=== PATIENT | female | born 1975 | race African-American/Black ===

== ENCOUNTER 2020-08-05 05:05 | Emergency (ER) | payer OTHER, SELFPAY ==
[2020-08-05] VITALS (11 sets, daily range): BP systolic 93–118; BP diastolic 62–86; PULSE 71–100; RESP 13–20; TEMP 36.2; O2SAT 98–100
--- NOTE | ~2020-08-05 | CT_ITS ---
EXAMINATION: CT BRAIN W/O DATE: 08/05/2020 07:00 INDICATION: Dizziness TECHNIQUE: Computed tomography (CT) of the head was performed without intravenous contrast. The dose- length product was 605.33 mGy-cm. The mA was adjusted according to patient size. Iterative reconstruc tion technique was employed. COMPARISON: No prior studies for comparison. FINDINGS: Normal brain parenchymal volume for age. Normal bailey-white differentiation. No acute intrac ranial hemorrhage, infarction, mass or mass effect. There is a foreign body overlying the skull in th e right parietal region. This creates streak artifact limiting evaluation of the overlying parenchyma . No ventriculomegaly or midline shift. Midline sagittal images demonstrate a normal corpus callosum, c raniovertebral junction and sella turcica. Basilar cisterns are patent. Paranasal sinuses and mastoids are pneumatized. No depressed skull fractures. IMPRESSION: 1. No acute intracranial abnormality. Reviewed, dictated and finalized at location A. INE I TRIMMER
--- NOTE | ~2020-08-05 | XR_ITS ---
XR chest 1V portable 08/05/2020 06:29 Indication: Cough Procedure: AP portable chest Comparison: 10/04/2019 Findings: Heart size normal. No focal air space disease, pulmonary edema, pleural effusion or suspect ed pneumothorax. Impression: 1: No acute cardiopulmonary disease. Reviewed, dictated and finalized at location A. CTOR OF MUSIC THERAPY Impression: 1: No acute cardiopulmonary disease.
[2020-08-05] MEDS: ONDANSETRON INJ 4 MG/2 ML VIAL (05:31)
--- NOTE | 2020-08-05 05:41 | ECG_ITS ---
Measurements Intervals [place] Rate: 80 P: 45 CO: 155 QRS: 53 QRSD: 89 T: 27 QT: 371 QTc: 429 Interpretive Statements SINUS RHYTHM NONSPECIFIC T-WAVE ABNORMALITY- INFERIOR LEADS BORDERLINE ECG Electronically Signed On 08-05-2020 7:27:28 AREA MECHANIC by Ernesto Diaz D.O.
--- NOTE | 2020-08-05 05:41 | ED.GENADULT ---
HPI - General Adult General Chief complaint: Shortness of Breath/Dyspnea <DO Diane Bangura Last Filed: 08/05/20 06:00> Stated complaint: diff breathing, dizziness <DO Diane Bangura Last Filed: 08/05/20 06:00> Time Seen by Provider: 08/05/20 05:11 <Javed Pierce DO - Last Filed: 08/05/20 06:00> Source: RN notes reviewed <DO Diane Bangura Last Filed: 08/05/20 06:00> History of Present Illness HPI narrative: Patient presents emergency department from home for dizziness. Patient states that she awoke from sleep feeling dizzy. States that time she felt like the room was spinning states she was nauseated with the symptoms. She states that she then noted that when she was getting up she was feeling short of breath with getting up and ambulating at this time in bed she states she does have dizziness but is improved and worsened with standing up and with rotation of the head bilaterally she denies any fevers or chills vision changes numbness or tingling in the extremities chest pain or any other symptoms patient does state she continues to have nausea <DO Diane Bangura Last Filed: 08/05/20 06:00> Related Data Home medications: Home Medications Medication Instructions Recorded Confirmed ergocalciferol (vitamin D2) 10/04/19 [Vitamin D2] ferrous sulfate 325 mg PO DAILY 10/04/19 <Javed Pierce DO - Last Filed: 08/05/20 06:00> Allergies/adverse reactions: Allergies Allergy/AdvReac Type Severity Reaction Status Date / Time milk Allergy Unknown RASH WHEN Verified 08/05/20 05:06 SHE DRINKS A LOT OF MILD SEAFOOD Allergy Unknown RASH Uncoded 10/04/19 07:59 <Javed Pierce DO - Last Filed: 08/05/20 06:00> Review of Systems Review of Systems: Narrative: Gen.: Denies fevers or chills Eyes: Denies eye pain or visual change ENT: Denies congestion Respiratory: Reports shortness of breath with exertion CV: Denies chest pain or palpitations GI: Denies abdominal pain reports nausea vomiting denies burning, urgency, frequency or hematuria Musculoskeletal: Denies back pain or muscle pain Neuro: See HPI Skin: Denies rash Except as documented, all other systems reviewed and negative <Javed Pierce DO - Last Filed: 08/05/20 06:00> [facility] Past Medical History Medical History: Medical History GERD (gastroesophageal reflux disease) <Javed Pierce DO - Last Filed: 08/05/20 06:00> Surgical History Surgical History: Surgical History (Updated 10/04/19 @ 08:14 by Ean Lockett) Hx of section Hx of tubal ligation <Javed Pierce DO - Last Filed: 08/05/20 06:00> Social History Social History: Social History Smoking status: Never smoker <Javed Pierce DO - Last Filed: 08/05/20 06:00> Exam Narrative: Exam Narrative: APPEARANCE: No acute distress, nontoxic, resting in bed HEENT: Normocephalic, atraumatic, OMM, EYES: PERRL, EOMI NECK: Supple, nontender, full range of motion without pain, no meningismus RESPIRATORY: No respiratory distress, clear to auscultation bilaterally with no rhonchi wheezing or rales CARDIOVASCULAR: RRR s murmur ABDOMINAL: Soft, nontender, nondistended MUSCULOSKELETAL: Moves all extremities. No clubbing, cyanosis or edema. NEURO: A and O ?3, following commands, speech normal, no facial droop,muscle strength 5 out of 5 bilateral upper and lower extremities dizziness increases with turning the head bilaterally SKIN:: Warm, dry. Normal Color PSYCHIATRIC: Normal affect/mood <Javed Pierce DO - Last Filed: 08/05/20 06:00> Course Vital Signs Vital signs: Vital Signs Pulse Oximetry 99 08/05/20 05:19 Temperature 36.2 C L 08/05/20 05:27 Pulse Rate 71 08/05/20 08:31 Respiratory Rate 18 08/05/20 08:31 Blood Pressure 93/62 L
[2020-08-05 05:42] LABS: Basophils Percent Auto 0.4 % (0.2-1.2); Eosinophils Absolute Auto 0.2 K/mm3 (0-0.3); Eosinophils Percent Auto 2.6 % (0-4.4); Hematocrit 36.2 % (37.0-47.0); Hemoglobin 11.2 g/dL (12.0-15.0); Immature Granulocyte Absolute 0.02 K/mm3 (0.00-0.031); Immature Granulocyte Percent A 0.2 % (0-0.5); Lymphocytes Absolute Auto 4.64 K/mm3 (0.9-3.2); Lymphocytes Percent Auto 54.8 % (18.3-44.2); Mean Corpuscular HGB Conc 30.9 g/dl (32-36); Mean Corpuscular Volume 80.8 fl (80-100); Mean Platelet Volume 10.2 fl (7.4-10.4); Monocytes Absolute Auto 0.5 K/mm3 (0.1-0.6); Monocytes Percent Auto 6.4 % (2.6-8.5); Neutrophils Percent Auto 35.6 % (45.5-73.1); Platelet Count Result 317 k/mm3 (150-375); Red Blood Count 4.48 M/mm3 (4.2-5.4); Red Cell Distribution Width 15.6 % (11.5-14.5); White Blood Count 8.5 K/mm3 (4.5-10.0)
[2020-08-05] MEDS: SODIUM CHLORIDE 0.9% IV 1,000 ML 999 ML IV CONT (05:48)
[2020-08-05] MEDS: MECLIZINE HCL 25 MG TABLET PO (05:48)
[2020-08-05 05:58] LABS: Alanine Aminotransferase 12 U/L (4-35); Albumin Level 3.9 g/dL (3.5-5.1); Alkaline Phosphatase 83 U/L (38-126); Anion Gap 10 mmol/L (8-16); Aspartate Amino Transferase 19 U/L (14-36); Bilirubin,Total 0.2 mg/dL (0.2-1.3); Blood Urea Nitrogen 12 mg/dL (7-17); Calcium 8.7 mg/dL (8.4-10.2); Carbon Dioxide 23 mmol/L (22-30); Chloride 107 mmol/L (98-107); Estimated CRCL calculation 82 ml/min; Estimated Glomerular Filt Rate > 60; Glucose 149 mg/dL (65-105); Lipase 156 U/L (23-300); Potassium 3.8 mmol/L (3.4-5.0); Sodium 140 mmol/L (137-145)
[2020-08-05 06:37] LABS: Troponin I < 0.012 ng/mL (0.000-0.034)
--- NOTE | 2020-08-05 07:26 | PC.NURSE ---
Into pts room to introduce this RN. Informed pt that we were needing urine. PT states she will try and use the bedside commode when her gets back in room.
--- NOTE | 2020-08-05 07:34 | PC.NURSE ---
went back into pts room to see about urine. Pts told me to let her sleep . Informed both pt and pts that we are needing urine. Pt had me put down side rail and states she will try.
[2020-08-05 08:04] LABS: Add Urine Microscopic? YES; Appearance Urine Clear (Clear); Bacteria Urine Trace /hpf; Bilirubin Urine Negative (Negative); Blood Urine 2+ (Negative); Color Urine Yellow (Yellow); Glucose Urine UA Negative (Negative); Ketones Urine Negative (Negative); Leukocyte Esterase Ur Negative LEU/UL (Negative); Mucus Urine Rare /lpf; Nitrate Urine Negative (Negative); Protein Urine Negative (Negative); RBC Urine 0-2 /hpf (0-2); Specific Grav Ur 1.016 (1.001-1.035); Squamous Epithelial Cell Urine Many /hpf (Few); Urobilinogen Urine Negative mg/dL (<2.0)
== END 2020-08-05 09:29 | disposition home or self-care (01) ==
PROVIDERS: Emergency Medicine; Emergency Provider Emergency Medicine; PCP Nurse Practitioner Family
DX: R42 Dizziness and giddiness (principal); K21.9 Gastro-esophageal reflux disease without esophagitis; R94.31 Abnormal electrocardiogram [ECG] [EKG]
CPT/HCPCS: 36415; 70450; 71045; 80053; 81001; 81025; 83690; 84484; 85025; 93005; 96361; 96374; 96375; 99284; A9270; J2405; J7030

== ENCOUNTER 2020-10-21 08:28 | Outpatient (CLI) | payer OTHER, SELFPAY | END 2020-10-21 08:29 | disposition home or self-care (01) | LOC: ANHAUDIO 08:35 | PROVIDERS: PCP Nurse Practitioner Family | DX: R42 Dizziness and giddiness (principal) | CPT/HCPCS: 92537; 92540; 92546; 92557; 92567 ==

== ENCOUNTER 2020-11-13 16:21 | Emergency (ER) | payer OTHER, SELFPAY ==
--- NOTE | ~2020-11-13 | XR_ITS ---
EXAMINATION:XR_CERV2-3V_CR DATE: 11/13/2020 20:18 INDICATION: Neck pain TECHNIQUE: AP, lateral, and odontoid views of the cervical spine are provided. COMPARISON: None FINDINGS: Alignment is normal. The odontoid is intact. No fracture is identified. Vertebral body heig hts and disk spaces are normal. Small degenerative osteophytes project from the anterior endplates of multiple vertebral bodies. Prevertebral soft tissues are normal. Incidental note is made of a metall ic density projecting over the skull. This was seen on prior CT. IMPRESSION: 1. Mild cervical spondylosis without acute findings. Reviewed, dictated and finalized at location A. E CIRCULAR SAWYER
--- NOTE | ~2020-11-13 | XR_ITS ---
EXAMINATION: XR chest 2V DATE: 11/13/2020 17:02 INDICATION: Left-sided chest and arm pain radiating to the left back TECHNIQUE: PA and lateral views of the chest were obtained. COMPARISON: Chest radiograph dated 08/05/2020 FINDINGS: The lungs remain clear with no focal airspace opacities, pulmonary edema, pleural effusion or pneumot horax. The cardiomediastinal silhouette is normal. Mild thoracic dextrocurvature. IMPRESSION: 1. No acute cardiopulmonary disease. Reviewed, dictated and finalized at location B. T QUALITY MANAGER
--- NOTE | 2020-11-13 16:27 | ECG_ITS ---
Measurements Intervals [place] Rate: 84 P: 37 [place]: 147 QRS: 48 QRSD: 90 T: 13 QT: 346 QTc: 410 Interpretive Statements SINUS RHYTHM WITH SINUS ARRHYTHMIA NONSPECIFIC T-WAVE ABNORMALITY- INFERIOR LEADS BORDERLINE ECG Electronically Signed On 11-13-2020 18:22:29 [address] ROLLER ENGINEER by Ernesto Diaz D.O.
[2020-11-13 17:28] VITALS: BP 129/78; PULSE 88; RESP 18; TEMP 36.5; O2SAT 100
[2020-11-13 17:55] LABS: Basophils Percent Auto 0.4 % (0.2-1.2); Eosinophils Absolute Auto 0.2 K/mm3 (0-0.3); Eosinophils Percent Auto 2.6 % (0-4.4); Hematocrit 35.8 % (37.0-47.0); Hemoglobin 11.1 g/dL (12.0-15.0); Immature Granulocyte Absolute 0.01 K/mm3 (0.00-0.031); Immature Granulocyte Percent A 0.1 % (0-0.5); Lymphocytes Absolute Auto 2.95 K/mm3 (0.9-3.2); Lymphocytes Percent Auto 39.9 % (18.3-44.2); Mean Corpuscular Hemoglobin 24.9 pg (26-34); Mean Corpuscular Volume 80.4 fl (80-100); Mean Platelet Volume 10.5 fl (7.4-10.4); Monocytes Absolute Auto 0.6 K/mm3 (0.1-0.6); Monocytes Percent Auto 8.4 % (2.6-8.5); Neutrophils Absolute Auto 3.6 K/mm3 (1.3-6.7); Neutrophils Percent Auto 48.6 % (45.5-73.1); Platelet Count Result 272 k/mm3 (150-375); Red Blood Count 4.45 M/mm3 (4.2-5.4); Red Cell Distribution Width 15.4 % (11.5-14.5); White Blood Count 7.4 K/mm3 (4.5-10.0)
[2020-11-13 18:07] LABS: INR 0.9; Prothrombin Time 12.9 Seconds (11.1-14.7)
[2020-11-13 18:08] LABS: Partial Thromboplastin Time 25.9 SECONDS (22.3-36.8)
[2020-11-13 18:10] LABS: Anion Gap 6 mmol/L (8-16); Blood Urea Nitrogen 13 mg/dL (7-17); Calcium 8.7 mg/dL (8.4-10.2); Carbon Dioxide 26 mmol/L (22-30); Chloride 108 mmol/L (98-107); Estimated CRCL calculation 75 ml/min; Estimated Glomerular Filt Rate > 60; Glucose 99 mg/dL (65-105); Sodium 140 mmol/L (137-145)
[2020-11-13 18:22] LABS: Troponin I < 0.012 ng/mL (0.000-0.034)
[2020-11-13 20:21] VITALS: BP 122/80; PULSE 87; RESP 18; O2SAT 100
--- NOTE | 2020-11-13 21:49 | ED.GENADULT ---
HPI - General Adult General Chief complaint: Chest Pain Stated complaint: left arm pain, cp, back pain Time Seen by Provider: 11/13/20 19:37 History of Present Illness HPI narrative: Patient is a 45-year-old female who presents ER with left arm pain. Ongoing for 2 weeks. There is an aching discomfort to her arm. Associated with some shoulder and neck discomfort as well. She went to chiropractor today without relief of pain. Additionally she has taken Aleve once yesterday and then another time earlier in the week without significant improvement. She has no focal weakness or numbness in her arm. She is unsure of what movements or activities causes her discomfort to worsen. No known trauma. No cardiac history. Related Data Home Medications Medication Instructions Recorded Confirmed ergocalciferol (vitamin D2) 10/04/19 [Vitamin D2] ferrous sulfate 325 mg PO DAILY 10/04/19 Allergies Allergy/AdvReac Type Severity Reaction Status Date / Time milk Allergy Unknown RASH WHEN Verified 08/05/20 05:06 SHE DRINKS A LOT OF MILD SEAFOOD Allergy Unknown RASH Uncoded 10/04/19 07:59 Review of Systems Review of Systems: All systems reviewed & are unremarkable except as noted in HPI and below Constitutional: Constitutional: Denies chills, Denies fever(s) and Denies weakness ENT: Denies nasal congestion and Denies sore throat Cardiovascular: Cardiovascular: Denies chest pain, Denies rapid heart rate and Denies radiating jaw, neck or arm pain Respiratory: Respiratory: Denies cough, Denies dyspnea and Denies wheezing Gastrointestinal: Gastrointestinal: Denies nausea and Denies vomiting Musculoskeletal: Musculoskeletal: Denies arthralgias and Reports muscle cramps Comments: Left arm aching PMFSH Past Medical History Medical History GERD (gastroesophageal reflux disease) Surgical History Surgical History (Updated 10/04/19 @ 08:14 by Ean Lockett) Hx of section Hx of tubal ligation Social History Social History Smoking status: Never smoker Gender identity (if verbalized by the patient): Female Exam Narrative: Exam Narrative: GENERAL: Well-appearing, well-nourished, and in no acute distress. HEAD: Normocephalic, atraumatic. CHEST: Clear to auscultation. No respiratory distress. HEART: Regular rate and rhythm. Normal peripheral pulses. ABDOMEN: Soft, nontender, nondistended, normal active bowel sounds. EXTREMITIES: Focused exam left upper extremity reveals 5 out of 5 strength at the wrist/elbow/shoulder. Normal brachial radialis and biceps reflexes. No sensory deficit. Back: Mild tenderness over left trapezius muscle and the paraspinal cervical musculature. No palpable spasm. SKIN: Warm, dry, no rash. NEURO: Alert and oriented x3. Course Course Emergency Course: Patient now notes that if she turns her head to the right it may increase her discomfort on the left side. Discussed that we will treat her conservatively with anti-inflammatories as this may reflect a radiculopathy. Patient has had no infectious symptoms and has no focal deficit at this time. Discussed taking anti-inflammatories with food and starting reflux medication. Vital Signs Vital signs: Vital Signs Temperature 97.7 F 11/13/20 17:28 Pulse Rate 88 11/13/20 17:28 Respiratory Rate 18 11/13/20 17:28 Blood Pressure 129/78 11/13/20 17:28 Pulse Oximetry 100 11/13/20 17:28 Temperature 97.7 F 11/13/20 17:28 Pulse Rate 87 11/13/20 20:21 Respiratory Rate 18 11/13/20 20:21 Blood Pressure 122/80 11/13/20 20:21 Pulse Oximetry 100 11/13/20 20:21 Medical Decision Making Vital Signs Vital Signs: Vital Signs Temperature 97.7 F 11/13/20 17:28 Pulse Rate 88 11/13/20 17:28 Respiratory Rate 18 11/13/20 17:28 Blood Pressure 129/78 11/13/20 17:28 Pulse Oximetry 10
[2020-11-13 22:12] VITALS: BP 123/76; PULSE 84; RESP 18; O2SAT 99
== END 2020-11-13 22:15 | disposition home or self-care (01) ==
PROVIDERS: Emergency Provider Emergency Medicine; PCP Nurse Practitioner Family
DX: M54.12 Radiculopathy, cervical region (principal); K21.9 Gastro-esophageal reflux disease without esophagitis; M47.812 Spondylosis without myelopathy or radiculopathy, cervical region; R94.31 Abnormal electrocardiogram [ECG] [EKG]
CPT/HCPCS: 36415; 71046; 72040; 80048; 84484; 85025; 85610; 85730; 93005; 99284

== ENCOUNTER 2020-12-13 06:32 | Emergency (ER) | payer OTHER, SELFPAY ==
--- NOTE | ~2020-12-13 | US_ITS ---
EXAMINATION: US venous doppler [facility] DATE: 12/13/2020 08:17 INDICATION: Left lower limb pain TECHNIQUE: Grayscale ultrasound images without and with compression and Doppler ultrasound images of the left lower extremity veins were obtained. COMPARISON: None. FINDINGS: The visualized portions of left common femoral vein, profunda (deep) femoral vein, femoral vein, popl iteal vein, peroneal veins, posterior tibial veins, gastrocnemius vein and greater saphenous vein out flow are patent. IMPRESSION: 1. No deep venous thrombosis in the left lower limb. Reviewed, dictated and finalized at location A.
--- NOTE | ~2020-12-13 | XR_ITS ---
EXAMINATION: XR ankle LT min 3V, XR foot LT min 3V DATE: 12/13/2020 07:10 INDICATION: Distal anterior tibia/fibula and foot pain. TECHNIQUE: 1. Anteroposterior, mortise, additional oblique and lateral view of the left ankle were obtained. 2. Dorsoplantar, two oblique and lateral views of the left foot were obtained. COMPARISON: None. FINDINGS: Alignment of the foot and ankle is normal. No fracture or osteochondral lesion. Joint spaces are well maintained. Small plantar calcaneal spur. No ankle joint effusion. The soft tissues are unremarkable . IMPRESSION: 1. No acute osseous abnormality. Reviewed, dictated and finalized at location A. IMPRESSION: 1. No acute osseous abnormality.
[2020-12-13 06:34] VITALS: BP 105/67; PULSE 99; RESP 14; TEMP 36.8; O2SAT 100
--- NOTE | 2020-12-13 07:17 | PC.NURSE ---
Report received from Ronen RN. Dr. Taylor at bedside for exam.
[2020-12-13] MEDS: ACETAMINOPHEN 500 MG TABLET 1000 MG (07:36)
--- NOTE | 2020-12-13 08:16 | ED.LOWEXIN ---
HPI - Extremity Injury (Lower) General Chief Complaint: Extremity Injury, Lower Stated Complaint: Left leg pain Time Seen by Provider: 12/13/20 07:09 History of Present Illness HPI Narrative: Patient is a 45-year-old female who presents to the ER with aching in her left foot and leg below the knee. Ongoing for 24 h. Patient had been on a construction site walking on gravel but does not recall suffering an injury such as a fall or twisting of the ankle. No items were dropped on it. She has no numbness or tingling. She is concerned she could potentially have a blood clot. She is without chest pain or shortness of breath. She is taking naproxen without relief. She is able to bear weight. No swelling. Related Data Home Medications Medication Instructions Recorded Confirmed ergocalciferol (vitamin D2) 10/04/19 [Vitamin D2] ferrous sulfate 325 mg PO DAILY 10/04/19 Allergies Allergy/AdvReac Type Severity Reaction Status Date / Time Fish Containing Products Allergy Unknown Rash Verified 12/13/20 07:23 milk Allergy Unknown RASH WHEN Verified 12/13/20 06:53 SHE DRINKS A LOT OF MILD shellfish derived Allergy Unknown Rash Verified 12/13/20 07:23 SEAFOOD Allergy Unknown RASH Uncoded 12/13/20 06:53 Review of Systems Cardiovascular: Cardiovascular: Denies chest pain Respiratory: Respiratory: Denies cough and Denies dyspnea Musculoskeletal: Musculoskeletal: Denies back pain, Denies arthralgias, Denies joint swelling and Denies muscle cramps Comments: Generalized aching of the left lower extremity. PMFSH Past Medical History Medical History GERD (gastroesophageal reflux disease) Surgical History Surgical History (Updated 10/04/19 @ 08:14 by Ean Lockett) Hx of section Hx of tubal ligation Social History Social History Smoking status: Never smoker Gender identity (if verbalized by the patient): Female Exam Narrative: Exam Narrative: GENERAL: Well-appearing, well-nourished, and in no acute distress. HEAD: Normocephalic, atraumatic. EXTREMITIES: Focused exam left lower extremity reveals full range of motion at the hip/ankle/knee. 5 out of 5 strength noted. Normal dorsalis pedis and posterior tibial pulses. Sensation intact. Negative Homans' sign. No edema. SKIN: Warm, dry, no rash. NEURO: No focal deficits. Alert and oriented x3. PSYCH: Normal mood and affect. Course Vital Signs Vital signs: Vital Signs Temperature 98.2 F 12/13/20 06:34 Pulse Rate 99 12/13/20 06:34 Respiratory Rate 14 12/13/20 06:34 Blood Pressure 105/67 12/13/20 06:34 Pulse Oximetry 100 12/13/20 06:34 Temperature 98.2 F 12/13/20 06:34 Pulse Rate 99 12/13/20 06:34 Respiratory Rate 14 12/13/20 06:34 Blood Pressure 105/67 12/13/20 06:34 Pulse Oximetry 100 12/13/20 06:34 MDM - Extremity Injury (Lower) Imaging Data Radiologist's impression: ITS Impressions Ankle X-Ray 12/13/20 07:16 IMPRESSION: 1. No acute osseous abnormality. Foot X-Ray 12/13/20 07:16 IMPRESSION: 1. No acute osseous abnormality. Venous Doppler Study 12/13/20 08:18 IMPRESSION: 1. No deep venous thrombosis in the left lower limb. Discharge Plan Discharge Clinical Impression: Muscle ache Patient Disposition: Home, Self-Care Condition: Stable Instructions: Musculoskeletal Pain (ED) Additional Instructions: Continue take naproxen and Tylenol as needed for pain at home. Return the ER if you have redness or swelling of your leg, you have fever over 100.4 ?F, you cannot keep down food or water, or you have additional concerns. Prescriptions: No Action naproxen 500 mg tablet 500 mg PO BID Qty: 20 RF: 0 omeprazole 20 mg capsule,delayed release(DR/EC) 20 mg PO BID Qty: 30 RF: 0 ferrous sulfate 325 mg (65 mg iron) Tablet
== END 2020-12-13 08:55 | disposition home or self-care (01) ==
PROVIDERS: Emergency Provider Emergency Medicine; PCP Nurse Practitioner Family
DX: M79.662 Pain in left lower leg (principal); K21.9 Gastro-esophageal reflux disease without esophagitis
CPT/HCPCS: 73610; 73630; 93971; 99284; A9270

== ENCOUNTER 2021-01-07 10:20 | Emergency (ER) | payer OTHER, SELFPAY ==
[2021-01-07 10:44] VITALS: BP 98/69; PULSE 89; RESP 16; TEMP 36.6; O2SAT 100
[2021-01-07 10:47] VITALS: BP 98/69; PULSE 89; RESP 16; TEMP 36.6; O2SAT 100
--- NOTE | 2021-01-07 11:23 | ED.SKABFB ---
HPI - Skin/Abscess/Foreign Bdy General Chief complaint: Skin/Abscess/Foreign Body Stated complaint: Boil under arm Time Seen by Provider: 01/07/21 11:00 Source: patient and RN notes reviewed Mode of arrival: ambulatory Limitations: no limitations History of Present Illness HPI narrative: 45-year-old female who presents to [facility] with complaints of abscess under her left armpit for the past 3-4 days. Patient states that she has history of boils in the past. Patient states that she has been applying warm compresses and also applying ointment to area, states pain is aching and throbbing rates it 8/10. Patient has 1.5X1.5 raised indurated red area noted under left axilla which is red and warm to touch. MD complaint: abscess/boil Onset (ago): day(s) (3-4) Location: LUE (left axilla) Severity: severe Severity scale (1-10): 8 Quality: aching and other (throbbing) Pain Consistency: constant Relieving factors: none Exacerbating factors: palpation Treatments prior to arrival: OTC topical medication and other (warm compresses) Related Data Home Medications Medication Instructions Recorded Confirmed fluticasone propionate INTRANASAL 01/07/21 medroxyprogesterone mg IM 01/07/21 omeprazole 01/07/21 Allergies Allergy/AdvReac Type Severity Reaction Status Date / Time No Known Allergies Allergy Verified 01/07/21 10:28 Review of Systems Review of Systems: Narrative: CONSTITUTIONAL: Denies fever, chills, or sweats. EYES: Denies visual changes, redness, or discharge. ENT: Denies rhinorrhea, congestion, sore throat, or otalgia. CARDIOVASCULAR: Denies chest pain, palpitations, or edema. RESPIRATORY: Denies cough or dyspnea. GASTROINTESTINAL: Denies abdominal pain, nausea, vomiting, or diarrhea. GENITOURINARY: Denies dysuria or hematuria. SKIN: Positive for raised indurated red tissue in left axilla MUSCULOSKELETAL: Denies back pain, joint pain, or myalgia. NEUROLOGIC: Denies headache, numbness, or weakness. PSYCHIATRIC: Denies anxiety or depression. All systems reviewed & are unremarkable except as noted in HPI and below PMFSH Past Medical History Medical History (Updated 01/09/21 @ 21:50 by Kelsey Moreno NP) Dizziness GERD (gastroesophageal reflux disease) History of abscess of skin and subcutaneous tissue Surgical History Surgical History (Updated 01/09/21 @ 21:49 by Kelsey Moreno NP) No history of previous surgery Family History Family History (Updated 01/09/21 @ 21:49 by Kelsey Moreno NP) Other No significant family history Social History Social History (Updated 01/09/21 @ 21:47 by Kelsey Moreno NP) Smoking status: Never smoker Alcohol intake: current Alcohol use details: social Substance use: never Living arrangements: with family Gender identity (if verbalized by the patient): Female Comments At time of signature, agree with nursing past medical, surgical, social and family history. There is no relevant family history pertinent to the presenting complaint Exam Narrative: Exam Narrative: GENERAL: Well-appearing, well-nourished, and in no acute distress. HEAD: Normocephalic, atraumatic. EYES: PERRLA and EOMI. ENT: Nares clear, no rhinorrhea or epistaxis. Mucous membranes moist.TM normal with good light reflex, throat pink with no lesions or exudates, no tonsil swelling NECK: Supple.no lymphadenopathy CHEST: Clear to auscultation. No respiratory distress. HEART: Regular rate and rhythm. No murmur heard. Normal peripheral pulses. ABDOMEN: Soft, nontender, nondistended, normal active bowel sounds. EXTREMITIES: Normal range of motion. No edema. SKIN: Warm, dry, 1.5cm X1,5cm raised red indurated area to left axilla, painful to palpation, warmth to skin noted,no drainage noted NEURO: No focal deficits. Alert and oriented x3. Course Vital Signs Vital signs: Vital Signs Temperature 36.6 C 01/07/21 10:44 Pulse Rate 89 01/07/21 10:44 Respiratory Rate 16 /
== END 2021-01-07 11:55 | disposition home or self-care (01) ==
PROVIDERS: Emergency Provider Registered Nurse; PCP Nurse Practitioner Family
DX: L02.412 Cutaneous abscess of left axilla (principal); K21.9 Gastro-esophageal reflux disease without esophagitis
CPT/HCPCS: 10060; 87070; 87075; 87077; 87186; 87205; 99213; G0463

== ENCOUNTER 2021-11-21 15:28 | Emergency (ER) | payer OTHER, SELFPAY ==
[2021-11-21 15:37] VITALS: BP 105/72; PULSE 92; RESP 16; TEMP 36.8; O2SAT 99
--- NOTE | 2021-11-21 15:44 | ED.SKABFB ---
HPI - Skin/Abscess/Foreign Bdy General Chief complaint: Skin/Abscess/Foreign Body Stated complaint: Irritated Breast Time Seen by Provider: 11/21/21 15:44 Source: patient Mode of arrival: ambulatory Limitations: no limitations History of Present Illness HPI narrative: Cheryl Ornelas is a 46 yo female with a PMH breast abscess, who came to [facility] with a small 1.5 cm abscess under left . She has tried heat and she has a history of these developing into much larger abscesses in both left and right arm axilla. And on Bactrim for abscess last time so is going to put on Keflex Related Data Home Medications Medication Instructions Recorded Confirmed medroxyprogesterone mg IM 01/07/21 omeprazole 01/07/21 Allergies Allergy/AdvReac Type Severity Reaction Status Date / Time No Known Allergies Allergy Verified 01/07/21 10:28 Review of Systems Review of Systems: CONSTITUTIONAL: Denies fever, chills, sweats. EYES: Denies visual changes, redness, discharge. ENT: Denies rhinorrhea, congestion, sore throat, otalgia. CARDIOVASCULAR: Denies chest pain, palpitations, edema. RESPIRATORY: Denies dyspnea, wheezing, cough GASTROINTESTINAL: Denies abdominal pain, nausea, vomiting, diarrhea. GENITOURINARY: Denies dysuria, hematuria, abnormal discharge SKIN: Denies rash or itching. Patient has 1.5 cm abscess in her left axilla NEUROLOGIC: Denies numbness, or focal weakness. PSYCHIATRIC: Denies anxiety or depression. PMFSH Past Medical History Medical History Dizziness GERD (gastroesophageal reflux disease) History of abscess of skin and subcutaneous tissue Surgical History Surgical History No history of previous surgery Family History Family History Other No significant family history Social History Social History Smoking status: Never smoker Alcohol intake: current Alcohol use details: social Substance use: never Gender identity (if verbalized by the patient): Female Comments At time of signature, I agree with nursing past medical, surgical, social and family history. There is no relevant family history pertinent to the presenting complaint. Exam Narrative: GENERAL: This is a well-nourished, well-developed patient, in mild distress. HEAD: normocephalic, atraumatic. EYES: Sclera clear/white. Vision is grossly intact. EARS: External ears normal. Hearing grossly intact. NOSE: External nose normal without nasal discharge, nares without redness, no rhinorrhea. THROAT: Mucous membranes moist, NECK: Neck supple, CARDIOVASCULAR: Regular rate and rhythm without murmurs, gallops, or rubs. RESPIRATORY: Clear to auscultation. Breath sounds equal bilaterally. No wheezes, rales, or rhonchi. GASTROINTESTINAL: Abdomen soft, SKIN: warm, intact with 1.5 cm abscess with good NEURO: awake, alert, and oriented to person, place and time. There were no obvious focal neurologic abnormalities. Steady gait EXTREMITIES: Normal range of motion. BACK: Nontender without deformity Course Course Emergency Course: Patient comes with a 1.5 cm abscess under left arm patient appears to have hydroadenitis and needs to be evaluated surgeon discussed this with patient I&D of the abscess Started on Keflex Level of Care: Express Care Visit Vital Signs Vital signs: Vital Signs Temperature 98.3 F 11/21/21 15:37 Pulse Rate 92 11/21/21 15:37 Respiratory Rate 16 11/21/21 15:37 Blood Pressure 105/72 11/21/21 15:37 Pulse Oximetry 99 11/21/21 15:37 Temperature 98.3 F 11/21/21 15:37 Pulse Rate 92 11/21/21 15:37 Respiratory Rate 16 11/21/21 15:37 Blood Pressure 105/72 11/21/21 15:37 Pulse Oximetry 99 11/21/21 15:37 Procedures Abscess I/D upper extremity:
== END 2021-11-21 16:37 | disposition home or self-care (01) ==
PROVIDERS: Emergency Provider Nurse Practitioner
DX: L02.412 Cutaneous abscess of left axilla (principal); R42 Dizziness and giddiness; K21.9 Gastro-esophageal reflux disease without esophagitis
CPT/HCPCS: 10060; 99213; G0463

== ENCOUNTER 2022-06-19 08:15 | Emergency (ER) | payer OTHER, SELFPAY ==
--- NOTE | ~2022-06-19 | CT_ITS ---
EXAMINATION: CT brain wo con DATE: 06/19/2022 09:17 INDICATION: Dizziness. TECHNIQUE: Computed tomography (CT) of the head was performed without intravenous contrast. The mA wa s adjusted according to patient size. Iterative reconstruction technique was employed. The dose-lengt h product was 605.33 mGy-cm. COMPARISON: Head CT 08/05/2020 FINDINGS: There is no intracranial hemorrhage, acute infarction, or abnormal intracranial mass lesion . The ventricles are normal in size. The paranasal sinuses are clear. The orbits are normal. The mast oid air cells are normal. There is a chronic radiopaque foreign body in right lateral scalp and skull measuring 7 mm. IMPRESSION: 1. Normal brain. Reviewed, dictated and finalized at location D. IMPRESSION: 1. Normal brain.
[2022-06-19 08:17] VITALS: BP 113/74; PULSE 100; RESP 16; TEMP 36.1; O2SAT 98
[2022-06-19 09:01] VITALS: BP 110/79; PULSE 93; RESP 15; O2SAT 100
--- NOTE | 2022-06-19 09:04 | ECG_ITS ---
Measurements Intervals [place] Rate: 77 P: 25 WA: 146 QRS: 44 QRSD: 93 T: 6 QT: 347 QTc: 393 Interpretive Statements SINUS RHYTHM WITHIN NORMAL LIMITS NO PREVIOUS ECG AVAILABLE FOR COMPARISON Electronically Signed On 06-19-2022 13:44:56 CDT by Darrell Wilcox M.D.
--- NOTE | 2022-06-19 09:06 | ED.DIZZY ---
HPI - Dizziness General Chief Complaint: Dizziness Stated Complaint: dizziness Time Seen by Provider: 06/19/22 08:59 History of Present Illness HPI Narrative: 46-year-old female with history of acid reflux and vertigo presents to the emergency room with a sudden onset of dizziness this morning. Patient denies head injury or trauma. Patient states that dizziness is worse when she is walking around or moving her head. Patient denies spinning sensation. No associated nausea. Patient denies any other complaints. Patient does endorse a history of vertigo, which had a similar onset. States the vertigo was managed well with meclizine. Related Data Home Medications Medication Instructions Recorded Confirmed ergocalciferol (vitamin D2) 1,250 10/04/19 mcg (50,000 unit) capsule (Vitamin D2) ferrous sulfate 325 mg (65 mg 325 mg PO DAILY 10/04/19 iron) tablet medroxyprogesterone 150 mg/mL mg IM 01/07/21 intramuscular syringe omeprazole 20 mg capsule,delayed 01/07/21 release Allergies Allergy/AdvReac Type Severity Reaction Status Date / Time Fish Containing Products Allergy Unknown Rash Verified 06/19/22 09:44 milk Allergy Unknown RASH WHEN Verified 06/19/22 09:44 SHE DRINKS A LOT OF MILD shellfish derived Allergy Unknown Rash Verified 06/19/22 09:44 SEAFOOD Allergy Unknown RASH Uncoded 06/19/22 09:44 Review of Systems Review of Systems: CONSTITUTIONAL: Denies fever, chills, or sweats. EYES: Denies visual changes, redness, or discharge. ENT: Denies rhinorrhea, congestion, sore throat, or otalgia. CARDIOVASCULAR: Denies chest pain, palpitations, or edema. RESPIRATORY: Denies cough or dyspnea. GASTROINTESTINAL: Denies abdominal pain, nausea, vomiting, or diarrhea. GENITOURINARY: Reports dysuria SKIN: Denies rash or itching. MUSCULOSKELETAL: Denies back pain, joint pain, or myalgia. NEUROLOGIC: Reports dizziness PSYCHIATRIC: Denies anxiety or depression. [facility] Past Medical History Medical History Dizziness GERD (gastroesophageal reflux disease) GERD (gastroesophageal reflux disease) History of abscess of skin and subcutaneous tissue Surgical History Surgical History Hx of section Hx of tubal ligation No history of previous surgery Family History Family History Other No significant family history Social History Social History Smoking status: Never smoker Alcohol intake: current Alcohol use details: social Substance use: never Gender identity (if verbalized by the patient): Female Exam Narrative: GENERAL: Well-appearing, well-nourished, no physical limitations, and in no acute distress. HEAD: Normocephalic, atraumatic. EYES: Conjunctivae normal, PERRLA and EOMI. no nystagmus ENT: External nose normal, Nares clear, no rhinorrhea or epistaxis. Mucous membranes moist. Oropharynx without tonsillar hypertrophy exudate or other lesions. External ears normal, bilateral TMs normal bilaterally NECK: Supple. No meningeal signs. No adenopathy or masses. CHEST: Clear to auscultation. No respiratory distress. No wheezes rales or rhonchi. HEART: Regular rate and rhythm. No murmur heard. Normal peripheral pulses. ABDOMEN: Soft, nontender, nondistended, normal active bowel sounds. EXTREMITIES: Normal range of motion. No edema. No clubbing or cyanosis SKIN: Warm, dry, no rash. No noted wounds NEURO: No focal deficits. Alert and oriented x3. MAEW. CN's II-XI intact bilaterally, normal gait PSYCH: Cooperative. Normal mood and affect. Course Vital Signs Vital signs: Vital Signs Temperature 36.1 C L 06/19/22 08:17 Pulse Rate 100 06/19/22 08:17 Respiratory Rate 16 06/19/22 08:17 Blood Pressure 113/74 06/19/22 08:17 Pulse Oximetry 9
[2022-06-19 09:32] LABS: Basophils Percent Auto 0.5 % (0.2-1.2); Eosinophils Absolute Auto 0.1 K/mm3 (0-0.3); Eosinophils Percent Auto 2.1 % (0-4.4); Hematocrit 41.4 % (37.0-47.0); Hemoglobin 13.4 g/dL (12.0-15.0); Immature Granulocyte Absolute 0.01 K/mm3 (0.00-0.031); Immature Granulocyte Percent A 0.2 % (0-0.5); Lymphocytes Absolute Auto 1.68 K/mm3 (0.9-3.2); Mean Corpuscular HGB Conc 32.4 g/dl (32-36); Mean Corpuscular Hemoglobin 27.9 pg (26-34); Mean Corpuscular Volume 86.3 fl (80-100); Mean Platelet Volume 10.1 fl (7.4-10.4); Monocytes Absolute Auto 0.4 K/mm3 (0.1-0.6); Neutrophils Absolute Auto 3.4 K/mm3 (1.3-6.7); Neutrophils Percent Auto 60.2 % (45.5-73.1); Platelet Count Result 226 k/mm3 (150-375); Red Cell Distribution Width 13.6 % (11.5-14.5); White Blood Count 5.6 K/mm3 (4.5-10.0)
[2022-06-19] MEDS: MECLIZINE HCL 25 MG TABLET PO (09:43)
[2022-06-19 09:45] LABS: Appearance Urine Clear (Clear); Bilirubin Urine Negative (Negative); Blood Urine Negative (Negative); Color Urine Light Yellow (Yellow); Glucose Urine UA Negative (Negative); Ketones Urine Negative (Negative); Leukocyte Esterase Ur Negative LEU/UL (Negative); Nitrate Urine Negative (Negative); Protein Urine Negative (Negative); Specific Grav Ur 1.015 (1.001-1.035); Urobilinogen Urine 0.2 mg/dL (<2.0)
[2022-06-19 09:46] VITALS: BP 112/78; PULSE 78; RESP 15; O2SAT 100
[2022-06-19 09:48] LABS: Add Urine Microscopic? NO
[2022-06-19 09:49] LABS: Anion Gap 9 mmol/L (8-16); Blood Urea Nitrogen 15 mg/dL (7-17); Calcium 8.6 mg/dL (8.4-10.2); Carbon Dioxide 22 mmol/L (22-30); Chloride 106 mmol/L (98-107); Estimated CRCL calculation 64 ml/min; Estimated Glomerular Filt Rate > 60; Glucose 95 mg/dL (65-110); Potassium 3.7 mmol/L (3.4-5.0); Sodium 137 mmol/L (137-145)
[2022-06-19 10:01] VITALS: BP 117/82; PULSE 79; RESP 18; O2SAT 100
[2022-06-19 10:01] LABS: Troponin I < 0.012 ng/mL (0.000-0.034)
== END 2022-06-19 10:27 | disposition home or self-care (01) ==
PROVIDERS: Emergency Provider Nurse Practitioner Family; PCP Nurse Practitioner Family
DX: R42 Dizziness and giddiness (principal); K21.9 Gastro-esophageal reflux disease without esophagitis
CPT/HCPCS: 36415; 70450; 80048; 81003; 84484; 85025; 93005; 99284; A9270

== ENCOUNTER 2023-02-26 22:54 | Emergency (ER) | payer OTHER, SELFPAY ==
[2023-02-26 23:00] VITALS: BP 126/71; PULSE 99; RESP 16; TEMP 36.8; O2SAT 97
--- NOTE | 2023-02-27 00:11 | ED.GENADULT ---
HPI - General Adult General Chief complaint: Extremity Problem,Nontraumatic Stated complaint: right foot pain Time Seen by Provider: 02/26/23 23:32 Source: patient Mode of arrival: ambulatory Limitations: no limitations History of Present Illness HPI narrative: This is a 47-year-old female who presents to the ED with chief complaint of right foot pain onset at noon today. Denies any new injury. States she woke up and went to step down on the ground and started having pain in her foot. Denies any recent falls. States that the pain is mainly in the bottom of the foot with some pain wrapping around to the dorsum. Denies any numbness or weakness. Denies any skin changes. Related Data Home Medications Medication Instructions Recorded Confirmed ergocalciferol (vitamin D2) 1,250 10/04/19 mcg (50,000 unit) capsule (Vitamin D2) ferrous sulfate 325 mg (65 mg 325 mg PO DAILY 10/04/19 iron) tablet medroxyprogesterone 150 mg/mL mg IM 01/07/21 intramuscular syringe omeprazole 20 mg capsule,delayed 01/07/21 release Allergies Allergy/AdvReac Type Severity Reaction Status Date / Time Fish Containing Products Allergy Unknown Rash Verified 02/26/23 23:49 milk Allergy Unknown RASH WHEN Verified 02/26/23 23:49 SHE DRINKS A LOT OF MILD shellfish derived Allergy Unknown Rash Verified 02/26/23 23:49 SEAFOOD Allergy Unknown RASH Uncoded 06/19/22 09:44 Review of Systems Review of Systems: CONSTITUTIONAL: Denies fever, chills, or sweats. EYES: Denies visual changes, redness, or discharge. ENT: Denies rhinorrhea, congestion, sore throat, or otalgia. CARDIOVASCULAR: Denies chest pain, palpitations, or edema. RESPIRATORY: Denies cough or dyspnea. GASTROINTESTINAL: Denies abdominal pain, nausea, vomiting, or diarrhea. GENITOURINARY: Denies dysuria or hematuria. SKIN: Denies rash or itching. MUSCULOSKELETAL: See HPI NEUROLOGIC: Denies headache, numbness, dizziness, or weakness. PSYCHIATRIC: Denies anxiety or depression. [facility] Past Medical History Medical History Dizziness GERD (gastroesophageal reflux disease) GERD (gastroesophageal reflux disease) History of abscess of skin and subcutaneous tissue Surgical History Surgical History Hx of section Hx of tubal ligation No history of previous surgery Family History Family History Other No significant family history Social History Social History Smoking status: Never smoker Alcohol intake: current Alcohol use details: social Substance use: never Living arrangements: with family Gender identity (if verbalized by the patient): Female Exam Narrative: GENERAL: Well-appearing, well-nourished, and in no acute distress. HEAD: Normocephalic, atraumatic. EYES: PERRLA and EOMI. ENT: Nares clear, no rhinorrhea or epistaxis. Mucous membranes moist. Oropharynx without tonsillar hypertrophy exudate or other lesions. NECK: Supple. No adenopathy or masses. CHEST: No respiratory distress. Clear to auscultation. No wheezes rales or rhonchi HEART: Regular rate and rhythm. No murmur heard. Normal peripheral pulses. ABDOMEN: Soft, nontender, nondistended, normal active bowel sounds. MSK: Right foot: Mild tenderness to the palmar foot. No bruising or crepitus. No deformity. Left foot: Benign. MSK exam is otherwise benign. She is ambulatory. Normal range of motion. No edema. SKIN: Warm, dry, no rash. NEURO: Alert and oriented x3. No focal deficits. PSYCH: Normal mood and affect. Course Vital Signs Vital signs: Vital Signs Temperature 98.3 F 02/26/23 23:00 Pulse Rate 99 02/26/23 23:00 Respiratory Rate 16 02/26/23 23:00 Blood Pressure 126/71 02/26/23 23:00 Pulse Oximetry 97 02/26
[2023-02-27] MEDS: KETOROLAC 30 MG/ML VIAL (*BKC) IM (00:26)
== END 2023-02-27 00:39 | disposition home or self-care (01) ==
PROVIDERS: Emergency Provider Physician Assistant; PCP Nurse Practitioner Family
DX: M79.671 Pain in right foot (principal); K21.9 Gastro-esophageal reflux disease without esophagitis
CPT/HCPCS: 96372; 99283; J1885

== ENCOUNTER 2023-04-29 12:49 | Emergency (ER) | payer OTHER, SELFPAY ==
[2023-04-29 12:56] VITALS: BP 101/71; PULSE 86; RESP 16; TEMP 36.7; O2SAT 100
--- NOTE | 2023-04-29 12:57 | ED.GENADULT ---
HPI - General Adult General Chief complaint: Ear Stated complaint: Ears Irritation Time Seen by Provider: 04/29/23 12:58 Source: patient, RN notes reviewed and old records reviewed Mode of arrival: ambulatory Limitations: no limitations History of Present Illness HPI narrative: 47-year-old female presents to the [facility] with complaints of bilateral ear pain for 2 days. Reports a history of vertigo but does not feel the same. Denies fevers. No dizziness. Reports occasional headache. Denies any other symptoms. No nasal congestion, denies sore throat. Denies cough Has taken BD powder Onset (ago): day(s) (2) Related Data Home Medications Medication Instructions Recorded Confirmed medroxyprogesterone 150 mg/mL 150 mg IM [id number] 01/07/21 04/29/23 intramuscular syringe omeprazole 20 mg capsule,delayed 20 mg PO DAILY 04/29/23 04/29/23 release Allergies Allergy/AdvReac Type Severity Reaction Status Date / Time Fish Containing Products Allergy Intermediate Rash Verified 04/29/23 12:57 milk Allergy Intermediate RASH WHEN Verified 04/29/23 12:57 SHE DRINKS A LOT OF MILD shellfish derived Allergy Intermediate Rash Verified 04/29/23 12:57 Review of Systems Review of Systems: All systems reviewed & are unremarkable except as noted in HPI and below Constitutional: Constitutional: Reports no additional constitutional complaints Eyes: Eyes: Reports no additional eye complaints ENT: Reports as per HPI and Reports otalgia (bilateral ) Cardiovascular: Cardiovascular: Reports no additional cardiovascular complaints, Denies chest pain and Denies dyspnea Respiratory: Respiratory: Reports no additional respiratory complaints, Denies chest congestion, Denies cough and Denies dyspnea Gastrointestinal: Gastrointestinal: Reports no additional gastrointestinal complaints, Denies abdominal pain, Denies nausea and Denies vomiting Musculoskeletal: Musculoskeletal: Reports no additional musculoskeletal complaints Integumentary/Breasts: Skin/Breast: Reports system reviewed and no additional complaints, except as docu Neurologic: Reports system reviewed and no additional complaints, except as documented Psychiatric: Psychiatric: Reports no additional psychiatric complaints Allergic/Immunologic: Allergic/Immunologic: Reports no additional allergic/immunologic complaints PMFSH Past Medical History Medical History Dizziness GERD (gastroesophageal reflux disease) GERD (gastroesophageal reflux disease) History of abscess of skin and subcutaneous tissue Surgical History Surgical History Hx of section Hx of tubal ligation No history of previous surgery Family History Family History Other No significant family history Social History Social History Smoking status: Never smoker Alcohol intake: current Alcohol use details: social Substance use: never Living arrangements: with family Gender identity (if verbalized by the patient): Female Comments At the time of my signature, I reviewed and agree with the nursing past medical, surgical, social, and family history. There is no relevant family history pertinent to the patient complaint. Exam Const: General: cooperative, healthy appearing, comfortable, no acute distress, well developed, alert and well nourished Nutritional Appearance: well nourished Orientation/consciousness: patient oriented x3 Limitations: no limitations HENMT: Head: normal to inspection Ears: hearing grossly normal bilaterally, external ears normal, EAC's normal and TM abnormal bulging bilateral and with fluid behind the TM bilateral; not erythematous, with no loss of landmarks and not perforated Face/Nose/Sinus: Normal external nose present, Norm
[2023-04-29 13:00] VITALS: BP 101/71; PULSE 86; RESP 16; TEMP 36.7; O2SAT 100
== END 2023-04-29 13:12 | disposition home or self-care (01) ==
PROVIDERS: Emergency Provider Nurse Practitioner
DX: H65.03 Acute serous otitis media, bilateral (principal); K21.9 Gastro-esophageal reflux disease without esophagitis
CPT/HCPCS: 99213; G0463

== ENCOUNTER 2023-10-21 12:21 | Emergency (ER) | payer OTHER, SELFPAY ==
--- NOTE | ~2023-10-21 | XR_ITS ---
EXAMINATION: XR toe 5th RT min 2V DATE: 10/21/2023 12:43 INDICATION: Blunt trauma to the right fifth toe TECHNIQUE: Dorsal plantar, lateral and 2 oblique views of the right fifth toe were obtained. COMPARISON: None FINDINGS: Nondisplaced oblique extra articular fracture at the head and neck of the right fifth proximal phalan x. Alignment remains essentially anatomic. No other fractures identified minimal to mild osteoarthrit is at the visualized interphalangeal joints. Soft tissue swelling about the right fifth toe. IMPRESSION: Nondisplaced extra-articular fracture at the head and neck of the right fifth proximal phalanx. Reviewed, dictated and finalized at location A. FED PRINTER IMPRESSION: Nondisplaced extra-articular fracture at the head and neck of the right fifth p roximal phalanx.
--- NOTE | 2023-10-21 12:27 | ED.LOWEXIN ---
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 Patient still able ambulate normally. Related Data Home Medications Medication Instructions Recorded Confirmed medroxyprogesterone 150 mg/mL 150 mg IM [id number] 01/07/21 10/21/23 intramuscular syringe omeprazole 20 mg capsule,delayed 20 mg PO DAILY 04/29/23 10/21/23 release Allergies Allergy/AdvReac Type Severity Reaction Status Date / Time Fish Containing Products Allergy Intermediate Rash Verified 10/21/23 12:25 milk Allergy Intermediate RASH WHEN Verified 10/21/23 12:25 SHE DRINKS A LOT OF MILD shellfish derived Allergy Intermediate Rash Verified 10/21/23 12:25 Review of Systems Review of Systems: All systems reviewed & are unremarkable except as noted in HPI and below Constitutional: Constitutional: Denies body ache(s), Denies chills, Denies fatigue, Denies fever(s), Denies headache(s), Denies malaise and Denies weakness Eyes: Eyes: Denies blurry vision, Denies irritation and Denies loss of vision ENT: Denies otalgia, Denies headache(s), Denies nasal discharge, Denies sinus pain and Denies sore throat Cardiovascular: Cardiovascular: Denies chest pain, Denies irregular heart rhythm and Denies dyspnea Respiratory: Respiratory: Denies dyspnea Gastrointestinal: Gastrointestinal: Denies abdominal pain, Denies melena, Denies hematochezia, Denies diarrhea, Denies nausea and Denies vomiting Musculoskeletal: Musculoskeletal: Denies back pain, Denies myalgias and Reports arthralgias Integumentary/Breasts: Skin/Breast: Denies pruritus and Denies rash Neurologic: Denies headache(s), Denies loss of vision and Denies weakness Psychiatric: Psychiatric: Reports no additional psychiatric complaints Endocrine: Endocrine: Denies fatigue PMFSH Past Medical History Medical History Dizziness GERD (gastroesophageal reflux disease) GERD (gastroesophageal reflux disease) History of abscess of skin and subcutaneous tissue Surgical History Surgical History Hx of section Hx of tubal ligation No history of previous surgery Family History Family History Other No significant family history Social History Social History Smoking status: Never smoker Alcohol intake: current Alcohol use details: social Substance use: never Living arrangements: with family Gender identity (if verbalized by the patient): Female Comments At time of signature, agree with nursing past medical, surgical, social and family history. There is no relevant family history pertinent to the presenting complaint. Exam Const: General: cooperative, healthy appearing, comfortable, no acute distress and well nourished Nutritional Appearance: well nourished Orientation/consciousness: patient oriented x3 Limitations: no limitations HENMT: Head: normal to inspection, normocephalic and atraumatic Ears: hearing grossly normal bilaterally and external ears normal Face/Nose/Sinus: Normal external nose present, normal facial exam and face symmetric Face and sinus: normal facial exam and face symmetric Mouth: Yes lip normal Eyes: General: appearance normal, both eyes and all related structures Alignment and Position: alignment normal and position normal Periorbital: periorbital findings normal Eyelids: eyelids normal Pupils: Equal, round and reactive pupils present EOM: EOMs intact bilaterally Neck: Neck: normal visual in
[2023-10-21 12:33] VITALS: BP 121/77; PULSE 96; RESP 18; TEMP 36.6; O2SAT 98
== END 2023-10-21 13:10 | disposition home or self-care (01) ==
PROVIDERS: Emergency Provider Nurse Practitioner Family
DX: S92.514A Nondisplaced fracture of proximal phalanx of right lesser toe(s), initial encounter for closed fracture (principal); W22.8XXA Striking against or struck by other objects, initial encounter; K21.9 Gastro-esophageal reflux disease without esophagitis
CPT/HCPCS: 73660; 99204; G0463

== ENCOUNTER 2024-07-12 11:26 | Outpatient (CLI) | payer OTHER, SELFPAY ==
--- NOTE | ~2024-07-12 | XR_ITS ---
XR foot RT min 3V Ordering provider: Yvonne Anderson, CAFETERIA DIRECTOR History: . PLANTAR PAIN IN FEET BILATERALLY, NO INJURY . Comparison: None. FINDINGS: BONES: No acute fracture or dislocation. Calcaneal spur. JOINT SPACES: Narrowing of the proximal and distal interphalangeal joints. No tarsal coalition. SOFT TISSUES: Normal. IMPRESSION: No acute osseous abnormality of the right foot. Reviewed, dictated and finalized at location A.
--- NOTE | ~2024-07-12 | XR_ITS ---
XR knee RT 3V Ordering provider: Yvonne Anderson, WINDOWS SERVER ADMINISTRATOR History: . GENERAL KNEE PAIN, NO INJURY, KNEE GIVES OUT . Comparison: None. FINDINGS: BONES: No acute fracture or dislocation. JOINT SPACES: Normal. SOFT TISSUES: Normal. IMPRESSION: No acute osseous abnormality right knee. Reviewed, dictated and finalized at location A.
--- NOTE | ~2024-07-12 | XR_ITS ---
Left foot Technique: AP, oblique, and lateral views were obtained. Clinical History: Plantar pain Findings: No acute fracture or dislocation is seen. Osseous alignment is anatomic. Joint spaces are p reserved without erosive or degenerative change. Soft tissues are unremarkable. Impression: Unremarkable left foot radiographs. Reviewed, dictated and finalized at [facility]. Impression: Unremarkable left foot radiographs.
== END 2024-07-12 11:27 | disposition home or self-care (01) ==
PROVIDERS: PCP Midwife; Visit Provider Midwife
DX: M79.671 Pain in right foot (principal); M79.672 Pain in left foot; M25.561 Pain in right knee
CPT/HCPCS: 73562; 73630

== ENCOUNTER 2024-11-14 12:10 | Outpatient (CLI) | payer OTHER, SELFPAY | END 2024-11-14 12:11 | disposition home or self-care (01) | PROVIDERS: PCP Midwife; Visit Provider Midwife | DX: M25.562 Pain in left knee (principal) | CPT/HCPCS: 73562 ==

== ENCOUNTER 2025-02-08 14:22 | Emergency (ER) | payer OTHER, SELFPAY ==
--- NOTE | ~2025-02-08 | XR_ITS ---
3 VIEWS LUMBAR SPINE Ordering provider: Tahira Robertson APRN History: . fall, back pain . Comparison: None. FINDINGS: VERTEBRAL BODIES: No visible fracture or subluxation. Degenerative changes of the spine. DISK SPACES: Slight narrowing of the disc at the level of L5-S1. Multilevel facet joint disease. SOFT TISSUES: Normal. IMPRESSION: No acute osseous abnormality lumbar spine. Slight narrowing of the disc L5-S1. Multilevel facet joint disease. Reviewed, dictated and finalized at location A.
[2025-02-08 14:37] VITALS: BP 122/67; PULSE 92; RESP 16; TEMP 36.9; O2SAT 100
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
== END 2025-02-08 15:57 | disposition home or self-care (01) ==
PROVIDERS: Emergency Provider Nurse Practitioner Family; PCP Midwife
DX: M54.50 Low back pain, unspecified (principal); M25.562 Pain in left knee; M25.561 Pain in right knee; W19.XXXA Unspecified fall, initial encounter; K21.9 Gastro-esophageal reflux disease without esophagitis
CPT/HCPCS: 72100; 99213; G0463